=== PATIENT | male | born 1985 | race Caucasian/White ===

== ENCOUNTER 2022-10-19 17:48 | Outpatient (CLI) | payer OTHER, SELFPAY ==
[2022-10-19 21:40] LABS: Albumin* 4.5 g/dL (3.3-5.0); Chloride* 106 mmol/L (96-114); Potassium* 4.4 mmol/L (3.6-5.1); Sodium* 140 mmol/L (135-149)
[2022-10-19 21:42] LABS: Creatinine* 0.7 mg/dL (0.5-1.5); Estimated Glomerular Filt Rate 121 ml/min
[2022-10-19 21:43] LABS: Alanine Aminotransferase* 26 U/L (4-50); Alkaline Phosphatase* 91 U/L (40-150); Aspartate Amino Transferase* 22 U/L (12-35); Bilirubin Total* 0.3 mg/dL (0.1-1.5); Blood Urea Nitrogen* 12 mg/dL (5-24); Carbon Dioxide* 24 mmol/L (20-32)
[2022-10-19 21:44] LABS: Calcium* 9.2 mg/dL (8.4-10.6); Glucose* 78 mg/dL (60-115)
[2022-10-19 21:46] LABS: C Reactive Protein* 1.5 mg/dL (0.5-1.0)
[2022-10-19 22:10] LABS: Erythrocyte SedimentationRate* 13 mm/hr (2-15)
== END 2022-10-19 17:49 | disposition home or self-care (01) ==
PROVIDERS: Visit Provider Registered Nurse
DX: R21 Rash and other nonspecific skin eruption (principal)
CPT/HCPCS: 80053; 85651; 86140